=== PATIENT | female | born 1970 | race Caucasian/White ===

== ENCOUNTER 2018-06-14 10:06 | Emergency (ER) | payer OTHER ==
[2018-06-14] MEDS: ONDANSETRON 4 MG INJ IV (11:40)
[2018-06-14] MEDS: SOD CHLORIDE 0.9% 1,000 ML IV (11:40)
[2018-06-14] MEDS: KETOROLAC 30 MG INJ IV (11:40)
[2018-06-14 11:48] LABS: ADD MAN DIFF? NO
[2018-06-14 11:50] LABS: WHITE BLOOD COUNT 8.5 10^3/ul (4.8-10.8)
[2018-06-14 11:50] LABS: BASOPHIL # 0.1 10^3/ul (0.0-0.1); BASOPHILS % 0.7 % (0.0-2.0); EOSINOPHILS % 0.5 % (0.0-7.0); HEMATOCRIT 41.2 % (37.0-47.0); HEMOGLOBIN 14.1 g/dl (12.0-16.0); LYMPHOCYTES # 2.2 10^3/ul (0.8-2.9); LYMPHOCYTES % 25.4 % (15.0-51.0); MEAN CORPUSCULAR HGB CONC 34.2 g/dl (32.0-37.0); MEAN CORPUSCULAR VOLUME 90.5 fl (82.0-101.0); MEAN PLATELET VOLUME 10.8 fl (7.4-10.4); MONOCYTE # 0.5 10^3/ul (0.3-0.9); MONOCYTES % 5.9 % (0.0-11.0); NEUTROPHIL # 5.7 10^3/ul (1.6-7.5); NEUTROPHILS % 67.3 % (39.0-77.0); PLATELET COUNT 244 10^3/UL (140-415); RED BLOOD COUNT 4.55 10^6/ul (4.20-5.40); RED CELL DISTRIBUTION WIDTH 13.3 % (11.5-14.5)
[2018-06-14 12:14] LABS: ALANINE AMINOTRANSFERASE 8 IU/L (13-69); ALBUMIN 4.5 g/dl (3.3-4.9); ALBUMIN/GLOBULIN RATIO 1.21; ALKALINE PHOSPHATASE 86 IU/L (42-121); ANION GAP 8 (5-13); ASPARTATE AMINO TRANSFERASE 23 IU/L (15-46); BILIRUBIN,INDIRECT 0.5 mg/dl (0-1.1); BILIRUBIN,TOTAL 0.5 mg/dl (0.2-1.3); BLOOD UREA NITROGEN 13 mg/dl (7-20); CALCIUM 9.7 mg/dl (8.4-10.2); CARBON DIOXIDE 27 mmol/L (21-31); CHLORIDE 107 mmol/L (97-110); CREATININE 0.71 mg/dl (0.44-1.00); Estimated GFR > 60 mL/min (>60); GLUCOSE 102 mg/dl (70-220); POTASSIUM 4.5 mmol/L (3.5-5.1); SODIUM 142 mmol/L (135-144); TOTAL PROTEIN 8.2 g/dl (6.1-8.1)
[2018-06-14] MEDS: SOD CHLORIDE 0.9% 100 ML (12:59)
[2018-06-14] MEDS: IOHEXOL 300MG/ML 150 ML BTL (13:00)
[2018-06-14] MEDS: CLINDAMYCIN 600 MG/D5W (PMX) 50 ML IVPB (14:41)
== END 2018-06-14 15:24 | disposition home or self-care (01) ==
LOC: FTE 10:06
DX: L72.3 Sebaceous cyst (principal)
CPT/HCPCS: 36415; 70480; 80053; 81025; 85025; 96361; 96374; 96375; 99285-25